=== PATIENT | female | born 1940 ===

== ENCOUNTER 2018-01-05 10:05 | Day surgery (SDC) | payer MEDICARE, BC ==
[~2018-01-05] VITALS: Ht 162.6 cm; Wt 83.9 kg
[~2018-01-05 10:05] MED LIST: ALPHAGAN P5 M1 OPTH; CALCIUM500 M1 PO; CARTIA XT240 MG PO; CO Q-10100 MG PO; GLUCOSAMINE &1 EACH PO; LATANOPROST2.5 ML OPTH; LISINOPRIL20 MG PO; MAGNESIUM200 MG PO; MULTI VITAMIN1 EACH PO; VITAMIN B122500 MCG PO; VITAMIN K240 MCG PO
[2018-01-05] MEDS ORDERED: ADULT ASPIRIN R81 MG PO (10:35)
[2018-01-05] MEDS ORDERED: ALEVE220 MG PO (10:36)
== END 2018-01-05 13:23 | disposition home or self-care (01) ==
LOC: OPS 10:05 → DS 10:05 → OPS 10:30 → DS 10:30 → OPS 11:15
PROVIDERS: Ophthalmology
PROC: 08RJ3JZ Replacement of Right Lens with Synthetic Substitute, Percutaneous Approach (ICD-10-PCS; principal; 2018-01-05 11:15)
DX: H25.13 Age-related nuclear cataract, bilateral (principal); H40.89 Other specified glaucoma; I10 Essential (primary) hypertension; M19.90 Unspecified osteoarthritis, unspecified site; Z97.4 Presence of external hearing-aid; Z88.5 Allergy status to narcotic agent; Z79.899 Other long term (current) drug therapy
CPT/HCPCS: 0474T; 66984; C1783

== ENCOUNTER 2018-01-19 07:41 | Day surgery (SDC) | payer MEDICARE, BC ==
[~2018-01-19 07:41] MED LIST changes: +ADULT ASPIRIN R81 MG PO; +ALEVE220 MG PO
== END 2018-01-19 10:17 | disposition home or self-care (01) ==
LOC: OPS 07:41 → DS 07:41 → OPS 09:00
PROVIDERS: Ophthalmology
PROC: 08RK3JZ Replacement of Left Lens with Synthetic Substitute, Percutaneous Approach (ICD-10-PCS; principal; 2018-01-19 09:00)
DX: H25.12 Age-related nuclear cataract, left eye (principal); H40.89 Other specified glaucoma; I10 Essential (primary) hypertension; M19.90 Unspecified osteoarthritis, unspecified site; Z97.4 Presence of external hearing-aid; Z88.5 Allergy status to narcotic agent; Z79.82 Long term (current) use of aspirin; Z79.899 Other long term (current) drug therapy; I49.3 Ventricular premature depolarization
CPT/HCPCS: 0474T; 66984; J2250